=== PATIENT | female | born 1950 | race Caucasian/White ===

== ENCOUNTER 2017-04-01 09:00 | Outpatient (RCR) | payer MEDICARE, OTHER ==
[2016-07-06 15:38] VITALS: BMI 35.1
--- NOTE | 2017-03-08 14:22 | PT INITIAL EVALUATION ---
MEDICAL DIAGNOSIS: R shoulder pain TREATMENT DIAGNOSIS: same DATE OF ONSET: 11/06/16 SUBJECTIVE: Nidia Owusu presents to physical therapy with complaints of R shoulder pain with insidious onset. She denies any mechanism of injury that caused the R shoulder pain to start. She reports that she has increased R shoulder pain in the morning and then gets better as the day passes. She denies any history or current neck pain. She states that nothing makes the shoulder pain feel any better or worse. She rates the morning pain, which is the worst pain to be 3/10. Otherwise, she rates her R shoulder pain to be 0/ 10. She states that when she is sleeping on the L side her R shoulder feels better, however, when she sleeps on the R side it makes sure shoulder feel worse. Pain location is Anterior shoulder and described as . Pain scale is 0 on a ten point pain scale. REHAB PROBLEM LIST: Increased Pain Decreased ROM Decreased Strength Decreased Endurance Decreased Function Decreased ADL's PREVIOUS MEDICAL HISTORY: See EMR OCCUPATION: Retired OBJECTIVE: Posture: She demonstrated B rounded shoulders, increased thoracic kyphosis, and decreased lumbar lordosis. ROM: Cervical AROM: flexion, extension, R/L sidebending, R/L rotation: NIL with normal end feels. R shoulder AROM: flexion, abduction, scaption, ER: full with end range pain with ER being the worst pain. R shoulder AROM: IR: full with normal end feel. Palpation: TTP over anterior shoulder structures the include LHB and supraspinatus. Special Tests: Repeated extension: increased pain during the test and worse following the test with decreased AROM of R shoulder and increased end range pain. Repeated extension with IR: increased pain during the test and worse following the test with decreased AROM of R shoulder and increased end range pain. Repeated horizontal adduction: stretch felt during the test and felt better following the test with increased AROM of R shoulder and return to normal end feels with ER, abduction, and flexion of the R shoulder. Mobility: Independent Gait: Normal gait mechanics ASSESSMENT: Nidia will benefit from skilled physical therapy to address the listed impairments to improve QOL and return to prior level of function. Based on the signs and symptoms of my examination, it appears that she has a shoulder derangement that responded well to horizontal adduction principles with increased AROM and decreased end range pain in all of the directions. Short Term Goals 4 weeks: Pt will demonstrate abolished end range pain with flexion, abduction, and ER to improve function and QOL. 4 weeks: Pt will demonstrate a return to prior level of function with 0/10 R shoulder pain to improve function and QOL. 4 week: Pt will reduce quickdash from baseline to less than 15% to improve function and QOL. Patient's Goals reduce pain and develop HEP PLAN: Patient to be seen for Manual Therapy/STM/MET Strengthening/condition Range of Motion Work Hardening/Cond Stretching Neuromuscular Re-ed Closed Chain Program Posture/Body mechanics Gait Trg/Balance Trg Home Exercise Program Therapeutic Activities 2x/Week for 4 Weeks If you have any questions, comments, or concerns about this report or plan, please contact me at . Thank you, Lucien Diaz, PT, DPT MTDD
[~2017-04-01 09:00] MED LIST: ACET500T68 PO; AMLO2.5T74 PO; ASCO-182 PO; ASPI81TA86 PO; ATOR10TA65 PO; BISA-71 PO; BISA10SU62 RC; CEPH500T7 PO; CYCL10TA29 PO; Calcium Carbonate/Vitamin D3 PO; DOCU-202 PO; ENOX40DI8 SC; ENOX80DI8 SQ; GABA-549 PO; LAMO200T3 PO; LID5T TP; LINA290C PO; LISI-374 PO; LISI2.5T60 PO; LOR5/325 PO; LORA-629 PO; LORA-630 PO; LOVA10TA63 PO; MELA3TAB31 PO; MELO-207 PO; Multivitamins PO; OXYC-865 PO; OXYC5TAB38 PO; POLY17PO21 PO; POTA-23 PO; POTA20TA85 PO; PRED-1 PO; TRAZ-163 PO; VENL150C3 PO
--- NOTE | 2017-04-01 09:42 | PT PLAN OF CARE ---
Physician: Wandy May DO Patient is being seen: 1-2x/week Therapist: Lucien Diaz, PT, DPT Medical Diagnosis: R shoulder pain Treatment Diagnosis: same Date of Onset: 11/06/16 Date of Initial Evaluation: 03/08/17 Date patient was last seen: 04/01/17 Number of treatments: 3 Number of cancellations/No shows: 0 INTERVENTIONS: Manual Therapy/STM/MET Strengthening/condition Range of Motion Work Hardening/Cond Stretching Neuromuscular Re-ed Closed Chain Program Posture/Body mechanics Gait Trg/Balance Trg Home Exercise Program Therapeutic Activities GOALS: 4 weeks: Pt will demonstrate abolished end range pain with flexion, abduction, and ER to improve function and QOL. MET 4 weeks: Pt will demonstrate a return to prior level of function with 0/10 R shoulder pain to improve function and QOL. MET 4 week: Pt will reduce quickdash from baseline to less than 15% to improve function and QOL. MET PATIENT'S GOAL: reduce pain and develop HEP; MET Status of Patient's Goals: MET Patient Compliance: Excellent Prognosis: Excellent Reasons for discontinuing therapy: This is a discharge note. She reports that she is doing really well. She denies any R shoulder pain. She states that occasionally she sleeps wrong on her R shoulder, however, she is able to relive the R shoulder pain instantly upon waking up. She denies any difficulty with functional activities or pain with any of her functional activities. She reports that she has been performing her specific exercise with great success. She progressed well within PT with the following improvements: abolished R shoulder pain, improved RTC and periscapular strength 4+/5, full AROM in all directions with 0/10 pain, and return to prior level of function with 0/10 pain. Furthermore, she is independent on her specific exercise that she will continue to perform for her HEP. She has met all of her goals. As a result, she will be discharged from PT. Posture: She demonstrated B rounded shoulders, increased thoracic kyphosis, and decreased lumbar lordosis. ROM: Cervical AROM: flexion, extension, R/L sidebending, R/L rotation: NIL with normal end feels. R shoulder AROM: flexion, abduction, scaption, ER: full with muscular end feel. R shoulder AROM: IR: full with normal end feel. Strength: RTC and periscapular musculature: 4+/5 with 0/10 pain Special Tests: 2.27% QuickDash. No signs or symptoms of impingement Mobility: Independent If you have any questions, please contact me at [phone]. Thank you, Lucien Diaz, PT, DPT HANS
== END 2017-04-01 14:01 | disposition home or self-care (01) ==
LOC: PT 09:00
PROVIDERS: ATTEND Family Medicine
DX: M25.511 Pain in right shoulder (principal)
CPT/HCPCS: 97161

== ENCOUNTER → 2017-04-17 | Outpatient (CLI) | payer MEDICARE, OTHER ==
[2016-07-06 15:38] VITALS: BMI 35.1
[~2017-04-17] MED LIST changes: +DENOSUMAB 60 MG/1 ML SYR SUBQ ONE
[2017-04-17 14:12] VITALS: BP 127/68
== END ==
LOC: SPU 07:38
PROVIDERS: ATTEND Family Medicine
DX: M81.0 Age-related osteoporosis without current pathological fracture (principal)
CPT/HCPCS: 96372; J0897

== ENCOUNTER 2017-09-30 16:45 | Emergency (ER) | payer MEDICARE, OTHER ==
[2016-07-06 15:38] VITALS: BMI 35.1
[~2017-09-30 16:45] MED LIST changes: -DENOSUMAB 60 MG/1 ML SYR SUBQ ONE; -TRAZ-163 PO; +TRAZ100T31 PO
[2017-09-30 16:55] VITALS: BP 125/85
--- NOTE | 2017-09-30 17:18 | RADIOLOGY IMAGING REPORT ---
FACILITY: PATIENT NAME: Nidia Owusu : 1950 MR: [id number] V: [id number] EXAM DATE: ORDERING PHYSICIAN: GREGORY ROCHE TECHNOLOGIST: Location: [facility] - [place] Patient: Nidia Owusu : 1950 Visit/Account:[id number] Date of Sevice: 09/30/2017 Exam type: WRIST LEFT MIN 3 VIEW History: FALL, PAIN Comparison: None. Findings: Three views of the left wrist were submitted. There are severe degenerative changes involving the fi rst carpometacarpal articulation and the navicular trapezium articulation. Well-corticated bony dens ities are seen adjacent to the first carpometacarpal articulation suggesting a chronic finding. On t he oblique view there is a subtle cortical irregularity seen along the dorsal medial aspect of the di stal metaphysis of the left radius. Subtle fracture cannot be excluded given the clinical symptoms. There is soft tissue swelling about the left wrist. IMPRESSION: 1. Cortical irregularity seen along the dorsomedial aspect of the distal metaphysis of the left radi us. A subtle fracture cannot be excluded. Soft tissue swelling is noted about the left wrist Extensive degenerative changes as described Report Dictated By: Jennifer Hudson MD at 09/30/2017 5:11 PM Report E-Signed By: Jennifer Hudson MD at 09/30/2017 5:15 PM WSN:[email or web address]
--- NOTE | 2017-09-30 17:22 | RADIOLOGY IMAGING REPORT ---
FACILITY: [facility] PATIENT NAME: Nidia Owusu : 1950 MR: [id number] V: [id number] EXAM DATE: ORDERING PHYSICIAN: GREGORY ROCHE TECHNOLOGIST: Location: [facility] Patient: Nidia Owusu : 1950 Visit/Account:[id number] Date of Sevice: 09/30/2017 Exam type: FOREARM LEFT History: Fall pain medial wrist that radiates up to mid forearm Comparison: Left wrist series performed today Findings: There is a cortical irregularity seen along the lateral aspect of the distal left radius on the left forearm series. A cortical irregularity was seen along the medial aspect on today's left wrist serie s. These combined findings are very suspicious for a mildly impacted distal left radial fracture. S evere degenerative changes along the lateral aspect of the carpus again noted. IMPRESSION: 1. Stephenson very suspicious for a mildly impacted fracture to the distal left radius as detailed abov e Report Dictated By: Jennifer Hudson MD at 09/30/2017 5:15 PM Report E-Signed By: Jennifer Hudson MD at 09/30/2017 5:18 PM WSN:[email or web address]
--- NOTE | 2017-09-30 17:33 | ER Report ---
History and Physical Time Seen By MD: 17:30 HPI/ROS CHIEF COMPLAINT: left wrist injury HISTORY OF PRESENT ILLNESS: Pt was in a restaurant at [place] and missed a step and fell forward. pt used her left hand to block her fall. Did not hit her head. pt has immediate pain in left wrist. + swelling to distal wrist/thumb area. Pt denies elbow pain or numbness. pt denies hitting her head. Pt is not on any blood thinners. pts wrist became more swollen on way to [place] so came to the emergency room. REVIEW OF SYSTEMS: Respiratory: No cough, no dyspnea. Cardiovascular: No chest pain, no palpitations. Gastrointestinal: No vomiting, no abdominal pain. Musculoskeletal: No back pain, + left wrist pain Neuro: no numbness, no loc Allergies: Coded Allergies: No Known Drug Allergies (Unverified , 07/16/16) Home Meds Active Scripts Oxycodone Hcl/Acetaminophen (OXYCODONE-ACETAMINOPHEN 5-325) 1 Each Tablet, 1 EACH PO Q4-6H Y for PAIN, #10 TAB Prov:GREGORY ROCHE DO 09/30/17 Prednisone 10 Mg Tab (PREDNISONE 10 MG TAB) 10 Mg Tablet, 10 MG PO QDAY Y for reduce swelling and inflammation, #7 2 tabs daily for 2 days 1 tab daily for 3 days Prov:JEMMA RIVERS DO 08/11/16 Cephalexin 500 Mg Tab (KEFLEX 500 MG TAB) 500 Mg Tablet, 500 MG PO Q6H, #40 TAB Prov:STEPAN ZARATE PA-C 07/16/16 [Multivitamins Tab] 1 EA TAB No Conflict Check, 1 EACH PO QDAY, #30 TAB Prov:AISHA KIRKLAND MD 07/12/16 Oxycodone Hcl (OXYCODONE HCL) 5 Mg Tablet, 5-15 MG PO Q4H Y for PAIN, #50 TAB Prov:AISHA KIRKLAND MD 07/12/16 Docusate Sodium (DOCUSATE SODIUM) 100 Mg Capsule, 100 MG PO BID, #60 CAPSULE Prov:AISHA KIRKLAND MD 07/12/16 [Calcium Carbonate/Vitamin D3] 1 EA TAB No Conflict Check, 2 EACH PO BIDBS, # 100 TAB Prov:AISHA KIRKLAND MD 07/12/16 Ascorbic Acid (VITAMIN C) 500 Mg Tablet, 500 MG PO BIDBS for wound healing., # 30 TAB Prov:AISHA KIRKLAND MD 07/12/16 Acetaminophen (TYLENOL EXTRA STRENGTH) 500 Mg Tablet, 500 MG PO Q6H Y for PAIN, #30 TAB One tab every 6hrs as needed for mild pain. Do not take if using the Lortab as well. Prov:JOS KIRKLAND MD 02/22/16 Reported Medications Bisacodyl (BISACODYL) 5 Mg Tablet.dr, 5 MG PO DAILY Y for CONSTIPATION 07/14/16 Potassium Chloride (KLOR-CON M20) 20 Meq Tab.er.prt, 20 MEQ PO QDAY 07/05/16 Amlodipine Besylate (AMLODIPINE BESYLATE) 2.5 Mg Tablet, 1 TAB PO QDAY, #30 TAB 10/20/15 Lisinopril (LISINOPRIL) 40 Mg Tablet, 40 MG PO QDAY, TAB 10/20/15 Trazodone Hcl (TRAZODONE HCL) 100 Mg Tablet, 250 MG PO QHS, TAB 10/20/15 Lamotrigine (LAMOTRIGINE) 200 Mg Tab.er.24, 200 MG PO DAILY 10/20/15 Atorvastatin Calcium (ATORVASTATIN CALCIUM) 10 Mg Tablet, 1 TAB PO QDAY, TAB 10/20/15 Venlafaxine Hcl (VENLAFAXINE HCL ER) 150 Mg Cap.er.24h, 450 MG PO QDAY 10/20/15 Gabapentin (GABAPENTIN) 300 Mg Capsule, 300 MG PO TID, CAPSULE 09/23/14 Past Medical/Surgical History Pmhx: breast ca 20 years ago, hiatea hernia, scoliosis, herniated discs, ankle fx, htn Pshx: appy, fundoplication, scoliosis/herniated disc repair, breast surgery cancer repair Hx Smoking: No Smoking Status: Never Smoker Exposure to Second Hand Smoke?: No Hx Substance Use Disorder: No Hx Alcohol Use: No Physical Exam General appearance: alert no distress HEENT: no hemotympanums, CVS: heart is regular Lungs: clear to auscultation Lt hand: There is mild swelling distal radius. There is moderate tenderness distal radius and thenar aspect of hand. There is mild snuff box tenderness. Pt has elbow pain with supination or pronation of the wrist Skin: Intact Neurologic exam: The patient has normal sensation distal to the injury. Tendon function is intact. Vascular exam: Normal pulses and capillary refill in the fingers DIFFERENTIAL DIAGNOSIS: After history and physical exam differential diagnosis was considered for] hand injury including contusion, fracture, ligamentous and tendon injuries. Medical Decision Making ED Course/Re-evaluation ED Course Xray shows + fx of distal radius. pt is familiar with [facility]. will follow up for fx. Decision to Disposition Date: Sep 30, 2017 Decision to Disposition Time: 17:58 Depart Departure Impression: Primary Impression: Distal radius fracture, left Condition: Condition Unchanged Disposition: HOME OR SELF-CARE Referrals: KARISSA SALAS DO (PCP) [facility] PT 2 Days New Scripts Oxycodone Hcl/Acetaminophen (OXYCODONE-ACETAMINOPHEN 5-325) 1 Each Tablet 1 EACH PO Q4-6H Y for PAIN, #10 TAB Prov: GREGORY ROCHE DO 09/30/17 Patient Instructions: Wrist Fracture in Adults (GEN) Additional Instructions: You have a fracture of your distal radius. Keep your wrist in a splint. ice, elevate and rest Call [facility] to make an appointment for further evaluation and treatment of your wrist fracture. Tylenol 650mg every 4 hours as needed for pain. Percocet one every 4-6 hours as needed for severe pain only Problem Qualifiers Primary Impression: Distal radius fracture, left Encounter type: initial encounter Fracture type: closed Fracture morphology : Colles' Qualified Codes: S52.532A - Colles' fracture of left radius, initial encounter for closed fracture GREGORY ROCHE DO Sep 30, 2017 17:33
[2017-09-30] MEDS ORDERED: PER PO (17:49)
[2017-09-30] MEDS ORDERED: OXYC-373 PO (17:50)
== END 2017-09-30 19:01 | disposition home or self-care (01) ==
LOC: ER 17:26
DX: S52.532A Colles' fracture of left radius, initial encounter for closed fracture (principal); W01.0XXA Fall on same level from slipping, tripping and stumbling without subsequent striking against object, initial encounter
CPT/HCPCS: 99283

== ENCOUNTER → 2017-10-17 | Outpatient (CLI) | payer MEDICARE, OTHER ==
[2016-07-06 15:38] VITALS: BMI 35.1
[~2017-10-17] MED LIST changes: +DENOSUMAB 60 MG/1 ML SYR SUBQ ONE; +OXYC-373 PO; +PER PO
[2017-10-17 17:14] VITALS: BP 99/68
== END ==
LOC: SPU 13:59
PROVIDERS: ATTEND Family Medicine
DX: M81.0 Age-related osteoporosis without current pathological fracture (principal)
CPT/HCPCS: 96372; J0897

== ENCOUNTER 2018-01-16 00:32 | Day surgery (SDC) | payer MEDICARE, OTHER ==
[2016-07-06 15:38] VITALS: Ht 160 cm; Wt 80.7 kg
[~2018-01-16] VITALS: Ht 160 cm; Wt 80.7 kg
[2018-01-16] VITALS (7 sets, daily range): BP systolic 83–137; BP diastolic 47–87
[~2018-01-16 00:32] MED LIST changes: -AMLO2.5T74 PO; +AMLO2.5T76 PO; +DEN60I SUBQ; -DENOSUMAB 60 MG/1 ML SYR SUBQ ONE; +METF-450 PO; +POLY17PO11 PO; -POLY17PO21 PO
[2018-01-16] MEDS ORDERED: LIDOCAINE/SOD BICARB 8.4% SYR ID ONE (08:00)
[2018-01-16] MEDS ORDERED: NORMOSOL R SOLN(*) 1000 ML BAG 1,000 ML IV PRN (08:00)
[2018-01-16] MEDS ORDERED: PROPOFOL EMUL(*) 10MG/ML 20 ML 60 ML ONE (09:54)
== END 2018-01-16 11:10 | disposition home or self-care (01) ==
LOC: OR 00:32
PROVIDERS: ATTEND Internal Medicine Gastroenterology
DX: Z12.11 Encounter for screening for malignant neoplasm of colon (principal); Z86.010 Personal history of colon polyps; K57.30 Diverticulosis of large intestine without perforation or abscess without bleeding; K64.9 Unspecified hemorrhoids; K21.9 Gastro-esophageal reflux disease without esophagitis; E11.9 Type 2 diabetes mellitus without complications; K58.9 Irritable bowel syndrome, unspecified; J45.909 Unspecified asthma, uncomplicated; I10 Essential (primary) hypertension; F32.9 Major depressive disorder, single episode, unspecified; G47.33 Obstructive sleep apnea (adult) (pediatric); E78.5 Hyperlipidemia, unspecified; M81.0 Age-related osteoporosis without current pathological fracture; Z98.1 Arthrodesis status
CPT/HCPCS: 00811; 36416; 45385; 82948; 88305; J2704

== ENCOUNTER 2018-04-21 02:42 | Day surgery (SDC) | payer MEDICARE, OTHER ==
[2016-07-06 15:38] VITALS: Ht 160 cm; Wt 83.0 kg
[~2018-04-21] VITALS: Ht 160 cm; Wt 83.0 kg
[~2018-04-21 02:42] MED LIST changes: -AMLO2.5T76 PO; +AMLO2.5T78 PO; +DOCU-416 PO; +FEXO180T87 PO; +OXYGENHOME INH
[2018-04-21] MEDS ORDERED: DEXAMETHASONE SOD 4 MG/ML VIAL ONE ×2 (07:56→10:18)
[2018-04-21] MEDS ORDERED: LIDOCAINE MPF 1% 5 ML VIAL ONE (07:56)
[2018-04-21] MEDS ORDERED: METOCLOPRAMIDE 10 MG/2 ML SDV ONE (07:56)
[2018-04-21] MEDS ORDERED: ONDANSETRON 4 MG/2 ML VIAL ONE (07:56)
[2018-04-21] MEDS ORDERED: PROPOFOL EMUL(*) 10MG/ML 20 ML 20 ML ONE (07:56)
[2018-04-21] MEDS ORDERED: ceFAZolin(*) 2GM/D5W 50ML 50 ML IVPB ONE (09:15)
[2018-04-21] MEDS ORDERED: NORMOSOL R SOLN(*) 1000 ML BAG 1,000 ML IV PRN (09:15)
[2018-04-21] MEDS ORDERED: MIDAZOLAM 2 MG/2 ML VIAL IVP PRN (09:15)
[2018-04-21] MEDS ORDERED: LIDOCAINE/SOD BICARB 8.4% SYR ID ONE (09:15)
[2018-04-21] MEDS ORDERED: FAMOTIDINE 20 MG TAB PO ONE (09:15)
[2018-04-21 09:18] VITALS: BP 134/77
[2018-04-21] MEDS ORDERED: LIDO/EPI 1% MDV 1:100,000 20ML INFIL ONE (10:11)
[2018-04-21] MEDS ORDERED: OXYMETAZOLINE SPRAY 15 ML BTL ONE (10:11)
[2018-04-21] MEDS ORDERED: NS(*) 0.9% 250 ML BAG 250 ML ONE (10:11)
[2018-04-21] MEDS ORDERED: fentaNYL CITR 100 MCG/2 ML AMP ONE ×2 (10:47→10:49)
[2018-04-21] MEDS ORDERED: HYDR-653 PO (11:41)
[2018-04-21] MEDS ORDERED: CEFU500T10 PO (11:42)
[2018-04-21] MEDS ORDERED: SODI1PAC44 NS (11:43)
[2018-04-21 11:45] VITALS: BP 119/71
--- NOTE | 2018-04-21 12:09 | OPERATIVE REPORT 1 ---
EVENT DATE: April 21, 2018 SURGEON: Rashad Rodríguez MD ANESTHESIOLOGIST: Nakul Rizo MD ANESTHESIA: LMA. PREOPERATIVE DIAGNOSIS Chronic left maxillary sinusitis. POSTOPERATIVE DIAGNOSIS Chronic left maxillary sinusitis and left nasal polyposis. PROCEDURE PERFORMED 1. Left nasal polypectomy. 2. Left maxillary antrostomy. INDICATIONS Please refer to the preoperative note. DESCRIPTION OF PROCEDURE The patient was positively identified in the preoperative area. She was accompanied there by her [id number]. Risks again explained, including but are not limited to bleeding, infection, injury to the orbit, vision changes, injury to the skull base, cerebral spinal fluid leak, and those associated with anesthesia. She acknowledged understanding of those risks. The patient's preoperative imaging was again reviewed. This was notable for opacification of the left maxillary sinus. The patient was then brought back to the operative suite, placed supine on the operative table and anesthesia was administered. Once asleep, the patient was positioned and prepped and draped in the usual sterile fashion. I initially placed cottonoids containing Afrin solution into the left nasal cavity. These were subsequently removed and nasal endoscopy was performed. This was notable for left nasal polyposis and concretions in the left ostiomeatal complex. A employee's representative specimen of the nasal polyposis was obtained and sent for permanent pathology. A nasal polypectomy was then performed with a microdebrider blade. The patient's concretions were then suctioned from the maxillary sinus. These were consistent with fungal debris. The maxillary sinus was then irrigated with saline solution. A NasoPore was placed between the middle turbinate and the lateral nasal wall. The patient was then turned to anesthesia for emergence. ESTIMATED BLOOD LOSS 10 cc. COMPLICATIONS None. [facility]
[2018-04-21 12:20] VITALS: BP 131/73
[2018-04-21 12:48] VITALS: BP 116/69
[2018-04-21 12:52] VITALS: BP 131/81
[2018-04-21 12:53] VITALS: BP 128/83
== END 2018-04-21 11:45 | disposition home or self-care (01) ==
LOC: OR 02:42
PROVIDERS: ATTEND Otolaryngology
DX: J32.0 Chronic maxillary sinusitis (principal); J33.9 Nasal polyp, unspecified
CPT/HCPCS: 31256; 88305; A9270; J1100; J2001; J2405; J2704; J2765; J3010; J7050; J0690

== ENCOUNTER 2018-05-07 08:15 | Outpatient (RCR) | payer MEDICARE, OTHER ==
[2016-07-06 15:38] VITALS: BMI 35.1
--- NOTE | 2018-03-05 10:32 | PT INITIAL EVALUATION ---
MEDICAL DIAGNOSIS: Altered balance and gait TREATMENT DIAGNOSIS: Same DATE OF ONSET: 01/02/14 SUBJECTIVE: Nidia Owusu presents to PT for recurrent falls since moving to [place] in January,. She relates she falls about once per two months, unsure why. Pain location is L-S and described as ache. Pain scale is 2 on a ten point pain scale. Pain is worse with fall onto her back and better with heat. REHAB PROBLEM LIST: Altered balance, gait, neuropathy, weakness PREVIOUS MEDICAL HISTORY: O2 at night, SOB, R ankle fracture, T10 to L5 fusions, L masectomy, scoliosis, LE DVT. OCCUPATION: Retired, recently lost her . Nidia reports she becomes SOB with short distance ambulation. OBJECTIVE: Posture: R thoracic and L lumbar scoliosis. Strength: Quads, hamstrings 4+/5, ankle DF, peroneals 5/5. Sensation: Diminished protective sensation plantar feel, R "H" 4.08, L "J" 4.31, [place] monofilament testing. Special Tests: O2 on room air with 170 feet of ambulation 86%, HR 115. Mobility: Independent. Difficulty picking items off the floor due to fusions. Gait: Functional Gait Assessment 24, a 20% impairment. Nidia ambulates with LOB with tandem gait, altered gait with ambulating with eyes shut, backwards. Balance: Tandem stand 30 sec. L and R, single leg stand 2 seconds L and R. Gonsalez Balance Assessment 49/56, normal fall risk. ASSESSMENT: Nidia Owusu may be falling from low O2 (PE's?), altered balance reactions, mild peripheral neuropathy. She did well with balance and strengthening with O2 .5 to 1 l/min, keeping her sats in the mid-90's. Short Term Goals One month: No falls, Nidia ambulates with normal cadance backwards and with low light/eyes shut. Two months: No falls, Nidia demonstrates corrective balance reactions on firm and uneven surfaces. Patient's Goals No falls, get stronger for balance. PLAN: Patient to be seen for Strengthening/condition Spinal Stabilization Stretching Neuromuscular Re-ed Gait Trg/Balance Trg Home Exercise Program 2x/Week for 2 Months Thank you for this referral. If you have any questions, comments, or concerns about this report or plan, please contact me at . [facility]
--- NOTE | 2018-04-07 17:47 | PT PLAN OF CARE ---
Physician: Dr. Wandy May Patient is being seen: 2x/week Therapist: Suzi Thorne PT Medical Diagnosis: Altered balance and gait Treatment Diagnosis: Same Date of Onset: 01/02/14 Date of Initial Evaluation: 03/05/18 Date patient was last seen: 04/07/18 Number of treatments: 10 Number of cancellations/No shows: 0 INTERVENTIONS: Strengthening/condition Neuromuscular Re-ed Gait Trg/Balance Trg Home Exercise Program GOALS: One month: No falls (met), Nidia ambulates with normal cadance backwards and with low light/eyes shut (progressing). Two months: No falls (met), Nidia demonstrates corrective balance reactions on firm and uneven surfaces (not met). PATIENT'S GOAL: No falls (met), get stronger for balance (progressing). Patient Compliance: Excellent Prognosis: Excellent Reasons for continuing therapy: S: Nidia denies falls and feels her balance is improving except uneven ground. O: Balance/Gait: Functional Gait Assessment improved to 13% disability. Nidia now ambulates with head motion normally. She still weaves with gait with eyes shut, backwards with short steps, loss of balance with single leg stand and tandem gait. Stepping balance reactions are diminished. Gonsalez Balance Assessment improved to 49, a 13% impairment. Special Tests: O2 on room air with 170 feet of ambulation 97%. A/P: Nidia Owusu continues to improve her gait and balance. She is integrating her vestibular system,but not fully there yet. If you agree, we'll continue 2x/week 3 more weeks to goals set. Thank you. HANS
[~2018-05-07 08:15] MED LIST changes: +CEFU500T10 PO; +HYDR-653 PO; +SODI1PAC44 NS
--- NOTE | 2018-05-07 09:47 | PT PLAN OF CARE ---
Physician: Dr. Wandy May Patient is being seen: 2x/week Therapist: Suzi Thorne, PT Medical Diagnosis: Altered balance and gait Treatment Diagnosis: Same Date of Onset: 01/02/14 Date of Initial Evaluation: 03/05/18 Date patient was last seen: 05/07/18 Number of treatments: 17 Number of cancellations/No shows: 0 INTERVENTIONS: Strengthening/condition, Stretching, Neuromuscular Re-ed, Gait Trg/Balance Trg, Home Exercise Program GOALS: One month: No falls, Nidia ambulates with normal cadance backwards and with low light/eyes shut. all met Two months: No falls, Nidia demonstrates corrective balance reactions on firm and uneven surfaces. all met PATIENT'S GOAL: No falls, get stronger for balance. both met Patient Compliance: Excellent Prognosis: Excellent Reasons for discontinuing therapy: S: Nidia denies falls, reports she feels more steady and that people in her exercise class has said the same thing. O: Strength: Eccentric quad control WNL descending 9" steps. Peroneals are 5-/5 now. Gait: Functional Gait Assessment 26/30, a 13% impairment. Nidia ambulates forward eyes shut, backwards eyes open WNL, clears low objects, pivots and stops with normal balance control. Nidia isn't able to do tandem gait due to LOB. Balance: Gonsalez Balance Assessment 52/56, normal fall risk, a 7% impairment. Single leg stand 3-5 seconds, steady tandem stand on firm. Stepping and UE protective extension balance reactions are present with balance challenges on firm and uneven surfaces. A/P: Nidia Owusu has improved balance, gait and strength. She can continue working her balance, ankle strength with her HEP. I'll DC PT. Thank you. HANS
== END 2018-05-07 15:00 | disposition home or self-care (01) ==
LOC: PT 08:15
PROVIDERS: ATTEND Family Medicine
DX: R26.89 Other abnormalities of gait and mobility (principal)
CPT/HCPCS: 97162

== ENCOUNTER 2018-09-06 11:35 | Emergency (ER) | payer MEDICARE, OTHER ==
[2016-07-06 15:38] VITALS: Wt 83.9 kg
--- NOTE | 2018-09-06 11:56 | ER Report ---
History and Physical Time Seen By MD: 11:53 Hx. of Stated Complaint: DESCRIBES PAIN TO L UPPER ABD THAT BEGAN SATURDAY AROUND BEDTIME. MILD NAUSEA. HPI/ROS CHIEF COMPLAINT: Abdominal pain HISTORY OF PRESENT ILLNESS: Patient is a 68-year-old female who presents emergency department with complaint of left upper and left lower quadrant abdominal pain that began approximately 2 days ago. Currently the pain is 7-8 out of intensity it does improve when getting up and is somewhat worse when lying down patient reports nausea but no vomiting. She reports no diarrhea. Denies fevers or chills. She denies chest pain or shortness of breath. She states he thought this might just be constipation but had a bowel movement today without significant relief in symptoms. Vision has had prior abdominal surgeries in the past including appendectomy also has a history of breast cancer surgery 22 years ago is currently considered in remission. REVIEW OF SYSTEMS: Constitutional: No fever, no chills. Eyes: No discharge. ENT: No sore throat. Cardiovascular: No chest pain, no palpitations. Respiratory: No cough, no shortness of breath. Gastrointestinal: Abdominal pain, nausea Genitourinary: No hematuria. Musculoskeletal: No back pain. Skin: No rashes. Neurological: No headache. Allergies: Coded Allergies: No Known Drug Allergies (Unverified , 07/16/16) Home Meds Active Scripts Ondansetron Hcl (ZOFRAN) 4 Mg Tablet, 4 MG PO Q8H for Nausea, #15 TAB 0 Refills Prov:HEIDY LANIER MD 09/06/18 Dicyclomine Hcl (DICYCLOMINE HCL) 20 Mg Tablet, 20 MG PO QID for abdominal cramping, #20 TAB 0 Refills Prov:HEIDY LANIER MD 09/06/18 Acetaminophen (TYLENOL EXTRA STRENGTH) 500 Mg Tablet, 500 MG PO Q6H PRN for PAIN, #30 TAB One tab every 6hrs as needed for mild pain. Do not take if using the Lortab as well. Prov:JOS KIRKLAND MD 02/22/16 Reported Medications Sodium Chloride/Sodium Bicarb ([employer] SINUS RINSE KIT) 1 Each Packet, 1 EACH NS TID, PACKET 04/21/18 Docusate Sodium (COLACE) 100 Mg Capsule, 100 MG PO, CAPSULE 04/11/18 Fexofenadine Hcl (FEXOFENADINE HCL) 180 Mg Tablet, 180 MG PO QDAY 04/11/18 Oxygen (OXYGEN) Inha, 3 L INH PRN for HS, L 02/25/18 Metformin Hcl (METFORMIN HCL) 500 Mg Tablet, 0.5 TAB PO DAILY, TAB 12/31/17 Denosumab (PROLIA) 60 Mg/1 Ml Injs, 60 MG SUBQ [id number] 12/31/17 Potassium Chloride (KLOR-CON M20) 20 Meq Tab.er.prt, 20 MEQ PO QDAY 07/05/16 Amlodipine Besylate (AMLODIPINE BESYLATE) 2.5 Mg Tablet, 1 TAB PO QDAY, #30 TAB 10/20/15 Lisinopril (LISINOPRIL) 40 Mg Tablet, 40 MG PO QDAY, TAB 10/20/15 Trazodone Hcl (TRAZODONE HCL) 100 Mg Tablet, 250 MG PO QHS, TAB 10/20/15 Lamotrigine (LAMOTRIGINE) 200 Mg Tab.er.24, 200 MG PO DAILY 10/20/15 Atorvastatin Calcium (ATORVASTATIN CALCIUM) 10 Mg Tablet, 1 TAB PO QDAY, TAB 10/20/15 Venlafaxine Hcl (VENLAFAXINE HCL ER) 150 Mg Cap.er.24h, 450 MG PO QDAY 10/20/15 Past Medical/Surgical History Past medical history for sleep apnea, GERD, irritable bowel syndrome, depression, appendectomy and spinal surgery. Recent sinus surgery for polypectomy. History of breast cancer status post surgery 22 years ago Hx Smoking: No Smoking Status: Never Smoker Exposure to Second Hand Smoke?: No Hx Substance Use Disorder: No Hx Alcohol Use: Yes Constitutional Vital Sign - Last 24 Hours 09/06/18 09/06/18 09/06/18 09/06/18 11:39 12:00 12:30 13:00 Temp 98.7 Pulse 72 77 86 Resp 18 B/P (MAP) 156/85 150/87 (108) 149/82 (104) 133/75 (94) Pulse Ox 90 91 95 O2 Delivery Room Air 09/06/18 13:30 Pulse 73 B/P (MAP) 153/87 (109) Pulse Ox 98 Physical Exam General/Constitutional: Patient is awake, alert, nontoxic and in no acute respiratory distress. Head: Normocephalic and atraumatic. Eyes: Conjunctival clear, Sclera are clear and anicteric. Ears:External canals are clear. Tympanic membranes are clear with normal landmarks and light reflex. Oropharyngeal: Mucous membranes are moist. There is no pharyngeal erythema or exudate. There are no palatal petechiae. Uvula is midline and symmetrical. Neck: Supple, no adenopathy. Cardiovascular: Heart is regular rate and rhythm without audible murmurs, rubs or gallops. Pulmonary: Lungs are clear to auscultation bilaterally. There are no wheezes, rales, or rhonchi. Chest rise is symmetrical Abdomen: Protuberant abdomen tenderness to palpation to the left and lower and left upper quadrants without guarding or rebound tenderness noted Extremities: No gross deformities, No peripheral cyanosis. Able to move all 4 extremities. Neuro: Alert and oriented X3, Patient has normal gait. Skin: No rashes, skin is warm dry and well perfused. Medical Decision Making Data Points Result Diagram: 09/06/18 1210 09/06/18 1210 Laboratory Hematology Test 09/06/18 12:10 09/06/18 12:29 Red Blood Count 4.76 M/uL (4.17-5.56) Mean Corpuscular Volume 88.9 fL (80.0-96.0) Mean Corpuscular Hemoglobin 30.2 pg (26.0-33.0) Mean Corpuscular Hemoglobin Concent 34.0 g/dL (32.0-36.0) Red Cell Distribution Width 14.5 % (11.5-14.5) Mean Platelet Volume 9.0 fL (7.2-11.1) Neutrophils (%) (Auto) 62.0 % (39.4-72.5) Lymphocytes (%) (Auto) 27.1 % (17.6-49.6) Monocytes (%) (Auto) 7.8 % (4.1-12.4) Eosinophils (%) (Auto) 2.4 % (0.4-6.7) Basophils (%) (Auto) 0.7 % (0.3-1.4) Nucleated RBC Relative Count (auto) 0.1 /100WBC Neutrophils # (Auto) 4.3 K/uL (2.0-7.4) Lymphocytes # (Auto) 1.9 K/uL (1.3-3.6) Monocytes # (Auto) 0.5 K/uL (0.3-1.0) Eosinophils # (Auto) 0.2 K/uL (0.0-0.5) Basophils # (Auto) 0.0 K/uL (0.0-0.1) Nucleated RBC Absolute Count (auto) 0.01 K/uL Sodium Level 144 mmol/L (137-145) Potassium Level 4.0 mmol/L (3.5-5.0) Chloride Level 103 mmol/L (98-107) Carbon Dioxide Level 29 mmol/L (22-31) Blood Urea Nitrogen 18 mg/dl (7-18) Creatinine 0.80 mg/dl (0.52-1.04) Glomerular Filtration Rate Calc > 60.0 Random Glucose 100 mg/dl (75-110) Calcium Level 9.6 mg/dl (8.4-10.2) Total Bilirubin 0.6 mg/dl (0.2-1.3) Aspartate Amino Transf (AST/SGOT) 32 U/L (0-35) Alanine Aminotransferase (ALT/SGPT) 41 U/L (0-56) Alkaline Phosphatase 119 U/L (0-126) Total Protein 7.5 g/dl (6.3-8.2) Albumin 4.2 g/dl (3.5-5.0) Lipase 61 U/L (23-300) Helicobacter pylori IgG Antibody Negative (NEGATIVE) Urine Color Yellow Urine Clarity Clear Urine pH 7.0 pH (4.8-9.5) Urine Specific [place] 1.019 Urine Protein Negative mg/dL (NEGATIVE) Urine Glucose (UA) Negative mg/dL (NEGATIVE) Urine Ketones Negative mg/dL (NEGATIVE) Urine Blood Negative (NEGATIVE) Urine Nitrite Negative (NEGATIVE) Urine Bilirubin Negative (NEGATIVE) Urine Urobilinogen Negative mg/dL (0.2-1.9) Urine Leukocyte Esterase Negative (NEGATIVE) Urine RBC <1 /HPF (0-2/HPF) Urine WBC 1 /HPF (0-5/HPF) Urine Squamous Epithelial Cells Few /LPF (</=FEW) Urine Bacteria Few /HPF (NONE-FEW) Urine Mucus None /HPF (NONE-FEW) Chemistry Test 09/06/18 12:10 09/06/18 12:29 White Blood Count 6.9 k/uL (4.5-11.0) Red Blood Count 4.76 M/uL (4.17-5.56) Hemoglobin 14.4 g/dL (12.0-16.0) Hematocrit 42.3 % (34.0-47.0) Mean Corpuscular Volume 88.9 fL (80.0-96.0) Mean Corpuscular Hemoglobin 30.2 pg (26.0-33.0) Mean Corpuscular Hemoglobin Concent 34.0 g/dL (32.0-36.0) Red Cell Distribution Width 14.5 % (11.5-14.5) Platelet Count 146 K/uL (150-450) Mean Platelet Volume 9.0 fL (7.2-11.1) Neutrophils (%) (Auto) 62.0 % (39.4-72.5) Lymphocytes (%) (Auto) 27.1 % (17.6-49.6) Monocytes (%) (Auto) 7.8 % (4.1-12.4) Eosinophils (%) (Auto) 2.4 % (0.4-6.7) Basophils (%) (Auto) 0.7 % (0.3-1.4) Nucleated RBC Relative Count (auto) 0.1 /100WBC Neutrophils # (Auto) 4.3 K/uL (2.0-7.4) Lymphocytes # (Auto) 1.9 K/uL (1.3-3.6) Monocytes # (Auto) 0.5 K/uL (0.3-1.0) Eosinophils # (Auto) 0.2 K/uL (0.0-0.5) Basophils # (Auto) 0.0 K/uL (0.0-0.1) Nucleated RBC Absolute Count (auto) 0.01 K/uL Glomerular Filtration Rate Calc > 60.0 Calcium Level 9.6 mg/dl (8.4-10.2) Total Bilirubin 0.6 mg/dl (0.2-1.3) Aspartate Amino Transf (AST/SGOT) 32 U/L (0-35) Alanine Aminotransferase (ALT/SGPT) 41 U/L (0-56) Alkaline Phosphatase 119 U/L (0-126) Total Protein 7.5 g/dl (6.3-8.2) Albumin 4.2 g/dl (3.5-5.0) Lipase 61 U/L (23-300) Helicobacter pylori IgG Antibody Negative (NEGATIVE) Urine Color Yellow Urine Clarity Clear Urine pH 7.0 pH (4.8-9.5) Urine Specific [place] 1.019 Urine Protein Negative mg/dL (NEGATIVE) Urine Glucose (UA) Negative mg/dL (NEGATIVE) Urine Ketones Negative mg/dL (NEGATIVE) Urine Blood Negative (NEGATIVE) Urine Nitrite Negative (NEGATIVE) Urine Bilirubin Negative (NEGATIVE) Urine Urobilinogen Negative mg/dL (0.2-1.9) Urine Leukocyte Esterase Negative (NEGATIVE) Urine RBC <1 /HPF (0-2/HPF) Urine WBC 1 /HPF (0-5/HPF) Urine Squamous Epithelial Cells Few /LPF (</=FEW) Urine Bacteria Few /HPF (NONE-FEW) Urine Mucus None /HPF (NONE-FEW) Urinalysis Test 09/06/18 12:29 Urine Color Yellow Urine Clarity Clear Urine pH 7.0 pH (4.8-9.5) Urine Specific [place] 1.019 Urine Protein Negative mg/dL (NEGATIVE) Urine Glucose (UA) Negative mg/dL (NEGATIVE) Urine Ketones Negative mg/dL (NEGATIVE) Urine Blood Negative (NEGATIVE) Urine Nitrite Negative (NEGATIVE) Urine Bilirubin Negative (NEGATIVE) Urine Urobilinogen Negative mg/dL (0.2-1.9) Urine Leukocyte Esterase Negative (NEGATIVE) Urine RBC <1 /HPF (0-2/HPF) Urine WBC 1 /HPF (0-5/HPF) Urine Squamous Epithelial Cells Few /LPF (</=FEW) Urine Bacteria Few /HPF (NONE-FEW) Urine Mucus None /HPF (NONE-FEW) EKG/Imaging Imaging FACILITY: [facility] PATIENT NAME: Nidia Owusu : 1950 MR: [id number] V: [id number] EXAM DATE: ORDERING PHYSICIAN: HEIDY LANIER TECHNOLOGIST: Location: [facility] - [place] Patient: Nidia Owusu : 1950 Visit/Account:[id number] Date of Sevice: 09/06/2018 CT ABDOMEN PELVIS W/O CON COMPARISON: 02/19/[address] abdomen pelvis. HISTORY: luq/llq pain. TECHNIQUE: Axial CT abdomen without intravenous contrast. Coronal and sagittal reformats. One of the following dose optimization techniques was utilized in the performance of this exam: automated exposure control; adjustment of the mA and/or kV according to patient size; or use of iterative reconstruction technique. Specific details can be referenced in the facility's radiology CT exam operational policy. CONTRAST: None FINDINGS: Lack of IV contrast limits assessment of the liver and other solid organs for subtle pathology. Within these limitations, the following observations are made: LUNG BASES: Mild distal thoracic aorta atherosclerotic calcification. Peripherally calcified left breast implant incompletely imaged. No significant lung base opacities. LIVER: Questionable surface contour nodularity, possibly cirrhosis. Water dens ity partially exophytic lesion measuring about 1 cm adjacent to the gallbladder, probable cyst. BILIARY: Negative. SPLEEN: Small. PANCREAS: Negative. ADRENALS: Negative. KIDNEYS: Negative. No hydronephrosis or visible stones. GI/MESENTERY: Sutures at the GE junction. No bowel wall thickening, mass or obstruction. Mild sigmoid diverticulosis. No evidence of diverticulitis. No localized fluid or fat stranding, ascites or free air.. VASCULAR: Mild diffuse vascular calcifications. LYMPH NODES: Negative. BLADDER: Negative. PELVIC ORGANS: Small uterus and ovaries. BONES: Anterior fusion changes throughout the lumbar spine with extensive posterior spinal fusion metallic instrumentation beginning off the superior margin of the study in the thoracic spine, extending to the pelvis with long screws in the iliac wings bilaterally.. L2-L5 laminectomy changes. Wires in the posterior canal at the lower lumbar levels. S-shaped scoliosis, convex left at the thoracolumbar junction, with moderate multilevel thoracolumbar spine degenerative changes. OTHER: Numerous clips in the anterior abdominal wall with absent right-sided abdominal muscles, presumably postsurgical. Fat-containing hernia in the midline epigastrium measuring about 2.7 x 4.9 cm. IMPRESSION: 1. No acute bowel pathology or specific cause for pain. 2. Mild sigmoid diverticulosis. 3. Question mild cirrhosis. 4. Extensive spinal fusion changes extending from the superior margin of the exam to the pelvis. 5. 4.9 cm fat-containing hernia in the midline epigastrium. ED Course/Re-evaluation ED Course Plan at this time will be CT scan of the abdomen and pelvis along with abdominal labs will give IV Zofran and we will give IV Toradol for pain. Patient sleeping and resting comfortably upon reevaluation. Explained blood work and CT scan shows no obvious cause for acute cause of abdominal pain. Explained that we will watch her symptoms closely over the weekend if she has worsening symptoms including pain vomiting or fever or blood in her stool she should return to the emergency department for reevaluation. We'll prescribe Bentyl for the abdominal cramping and Zofran for nausea at this time. Patient has no questions or concerns at time of disposition. Decision to Disposition Date: Sep 06, 2018 Decision to Disposition Time: 14:19 Depart Departure Latest Vital Signs Vital Signs Date Time Temp Pulse Resp B/P (MAP) Pulse Ox O2 Delivery O2 Flow Rate FiO2 09/06/18 13:30 73 153/87 (109) 98 09/06/18 11:39 98.7 18 Room Air Impression: Primary Impression: Abdominal pain Condition: Improved Disposition: HOME OR SELF-CARE Referrals: KARISSA SALAS DO (PCP) 2 Days if symptoms persist New Scripts Ondansetron Hcl (ZOFRAN) 4 Mg Tablet 4 MG PO Q8H for Nausea, #15 TAB 0 Refills Prov: HEIDY LANIER MD 09/06/18 Dicyclomine Hcl (DICYCLOMINE HCL) 20 Mg Tablet 20 MG PO QID for abdominal cramping, #20 TAB 0 Refills Prov: HEIDY LANIER MD 09/06/18 Patient Instructions: Abdominal Pain (ED) Problem Qualifiers Primary Impression: Abdominal pain Abdominal location: left upper quadrant Qualified Codes: R10.12 - Left upper quadrant pain HEIDY LANIER MD Sep 06, 2018 11:56
[2018-09-06] MEDS ORDERED: NS(*) 0.9% 500 ML BAG 500 ML IV ONE (12:11)
[2018-09-06] MEDS ORDERED: ONDANSETRON 4 MG/2 ML VIAL IVP ONE (12:15)
[2018-09-06] MEDS ORDERED: KETOROLAC 15 MG/ML VIAL IVP ONE (12:30)
[2018-09-06 12:35] LABS: PLATELET COUNT, AUTOMATED 146 K/uL (150-450)
[2018-09-06] MEDS ORDERED: IOPAMIDOL 76% 100 ML INFUS BTL 0 ML ONE (12:37)
--- NOTE | 2018-09-06 13:50 | RADIOLOGY IMAGING REPORT ---
FACILITY: [facility] - [place] PATIENT NAME: Nidia Owusu : 1950 MR: [id number] V: [id number] EXAM DATE: ORDERING PHYSICIAN: HEIDY LANIER TECHNOLOGIST: Location: [facility] Patient: Nidia Owusu : 1950 Visit/Account:[id number] Date of Sevice: 09/06/2018 CT ABDOMEN PELVIS W/O CON COMPARISON: 02/19/[address] abdomen pelvis. HISTORY: luq/llq pain. TECHNIQUE: Axial CT abdomen without intravenous contrast. Coronal and sagittal reformats. One of th e following dose optimization techniques was utilized in the performance of this exam: automated exp osure control; adjustment of the mA and/or kV according to patient size; or use of iterative reconstr uction technique. Specific details can be referenced in the facility's radiology CT exam operational policy. CONTRAST: None FINDINGS: Lack of IV contrast limits assessment of the liver and other solid organs for subtle pathology. Withi n these limitations, the following observations are made: LUNG BASES: Mild distal thoracic aorta atherosclerotic calcification. Peripherally calcified left br east implant incompletely imaged. No significant lung base opacities. LIVER: Questionable surface contour nodularity, possibly cirrhosis. Water density partially exophyti c lesion measuring about 1 cm adjacent to the gallbladder, probable cyst. BILIARY: Negative. SPLEEN: Small. PANCREAS: Negative. ADRENALS: Negative. KIDNEYS: Negative. No hydronephrosis or visible stones. GI/MESENTERY: Sutures at the GE junction. No bowel wall thickening, mass or obstruction. Mild sigmoi d diverticulosis. No evidence of diverticulitis. No localized fluid or fat stranding, ascites or free air.. VASCULAR: Mild diffuse vascular calcifications. LYMPH NODES: Negative. BLADDER: Negative. PELVIC ORGANS: Small uterus and ovaries. BONES: Anterior fusion changes throughout the lumbar spine with extensive posterior spinal fusion me tallic instrumentation beginning off the superior margin of the study in the thoracic spine, extendin g to the pelvis with long screws in the iliac wings bilaterally.. L2-L5 laminectomy changes. Wires in the posterior canal at the lower lumbar levels. S-shaped scoliosis, convex left at the thoracolumbar junction, with moderate multilevel thoracolumbar spine degenerative changes. OTHER: Numerous clips in the anterior abdominal wall with absent right-sided abdominal muscles, pres umably postsurgical. Fat-containing hernia in the midline epigastrium measuring about 2.7 x 4.9 cm. IMPRESSION: 1. No acute bowel pathology or specific cause for pain. 2. Mild sigmoid diverticulosis. 3. Question mild cirrhosis. 4. Extensive spinal fusion changes extending from the superior margin of the exam to the pelvis. 5. 4.9 cm fat-containing hernia in the midline epigastrium. Report Dictated By: Jarod Messina at 09/06/2018 1:22 PM Report E-Signed By: Jarod Messina at 09/06/2018 1:43 PM WSN:[id number]
[2018-09-06] MEDS ORDERED: ONDA4TAB97 PO (14:24)
[2018-09-06] MEDS ORDERED: DICY20TA70 PO (14:24)
[2018-09-06 14:30] VITALS: BP 131/107
== END 2018-09-06 14:58 | disposition home or self-care (01) ==
LOC: ER 11:39
DX: R10.12 Left upper quadrant pain (principal); R10.32 Left lower quadrant pain; K21.9 Gastro-esophageal reflux disease without esophagitis; F32.9 Major depressive disorder, single episode, unspecified; Z79.899 Other long term (current) drug therapy
CPT/HCPCS: 74176; 81001; 83690; 85025; 86677; 96361; 96374; 99284; J1885; J2405; J7040; 82040; 82247; 82310; 82374; 82435; 82565; 82947; 84075; 84132; 84155; 84295; 84450; 84460; 84520; Q9967